=== PATIENT | female | born 1945 | race Native Hawaiian/Other Pacific Islander ===

== ENCOUNTER 2018-06-26 10:08 | Outpatient (CLI) | payer MEDICARE, BC | END 2018-06-26 10:09 | disposition home or self-care (01) | LOC: C.DEXAIC 10:09 | DX: E55.9 Vitamin D deficiency, unspecified (principal) ==

== ENCOUNTER 2018-07-25 10:45 | Outpatient (CLI) | payer MEDICARE, BC | END 2018-07-25 10:46 | disposition home or self-care (01) | LOC: C.CTH 10:45 | DX: R10.32 Left lower quadrant pain (principal); K57.30 Diverticulosis of large intestine without perforation or abscess without bleeding ==

== ENCOUNTER 2018-10-05 09:16 | Outpatient (CLI) | payer MEDICARE, BC | END 2018-10-05 09:17 | disposition home or self-care (01) | LOC: C.CTH 09:16 | DX: K57.30 Diverticulosis of large intestine without perforation or abscess without bleeding (principal) ==